=== PATIENT | female | born 1990 | race African-American/Black ===

== ENCOUNTER 2018-04-15 18:14 | Emergency (ER) | payer MEDICAID ==
[~2018-04-15] VITALS: Ht 154.9 cm; Wt 71.0 kg
[2018-04-15 19:05] LABS: HCG UR SG 1.032 (1.003-1.030); MICROSCOPIC NOT IND
[2018-04-15 19:07] LABS: CULTURE INDICATED? NO
[2018-04-15 19:15] LABS: CLUE CELLS NONE SEEN (NONE SEEN); WET PREP WBCS NONE SEEN (FEW)
[2018-04-15 19:30] VITALS: BP 118/71
[2018-04-15] MEDS ORDERED: AZITHROMYCIN 500 MG TABLET PO ONE (19:30)
[2018-04-15] MEDS ORDERED: CEFTRIAXONE 250 MG IM ONE (19:30)
[2018-04-15] MEDS ORDERED: CEFTRIAXONE 250 MG ONE (19:33)
[2018-04-15] MEDS ORDERED: AZITHROMYCIN 250 MG TABLET ONE ×2 (19:33→19:45)
[2018-04-15] MEDS ORDERED: LIDOCAINE-MPF 1%, 2ML ONE (19:35)
== END 2018-04-15 20:06 | disposition home or self-care (01) ==
LOC: ED 19:31
DX: N72 Inflammatory disease of cervix uteri (principal)
CPT/HCPCS: 81003; 81025; 87210; 87491; 87591; 87808; 96372; 99284; J0696

== ENCOUNTER 2018-09-29 17:55 | Emergency (ER) | payer SELFPAY ==
[~2018-09-29] VITALS: Ht 154.9 cm; Wt 75.4 kg
[2018-09-29 18:04] VITALS: BP 121/72
[2018-09-29 19:05] LABS: HCG UR SG 1.031 (1.003-1.030)
== END 2018-09-29 19:34 | disposition home or self-care (01) ==
LOC: ED 19:29
DX: N64.59 Other signs and symptoms in breast (principal)
CPT/HCPCS: 81025; 99283

== ENCOUNTER 2018-10-15 08:07 | Emergency (ER) | payer OTHER ==
[~2018-10-15] VITALS: Ht 154.9 cm; Wt 76.0 kg
[2018-10-15 08:09] VITALS: BP 123/71
[2018-10-15] MEDS ORDERED: IBUPROFEN 200 MG TABLET PO ONE (08:30)
[2018-10-15] MEDS ORDERED: IBUPROFEN 600 MG TABLET ONE (08:41)
[2018-10-15 09:08] LABS: RAPID INFLUENZA A Negative (Negative); RAPID INFLUENZA B Negative (Negative)
== END 2018-10-15 09:57 | disposition home or self-care (01) ==
LOC: ED 08:48
DX: B34.9 Viral infection, unspecified (principal); M79.18 Myalgia, other site
CPT/HCPCS: 87400; 99283